=== PATIENT | female | born 1960 | race Caucasian/White ===

== ENCOUNTER 2018-03-23 18:42 | Inpatient (IN) | payer MEDICARE ==
[~2018-03-23] VITALS: Ht 160 cm; Wt 60.5 kg
[2018-03-23] MEDS ORDERED: ACETAMINOPHEN 650MG SUPP PR STA (18:53)
[2018-03-23] MEDS ORDERED: SODIUM CHLORIDE 0.9% 1000ML BAG (SEPSIS BOLUS) IV ONE (19:00)
[2018-03-23] MEDS ORDERED: VANCOMYCIN 1 G PREMIX 200 ML IV ONE (20:30)
[2018-03-23] MEDS ORDERED: PIPERACILLIN/TAZ 3.375G PREMIX 50 ML IV ONE (20:30)
[2018-03-23 20:39] LABS: BASOPHILS % 0.4 % (0.0-2.0); EOSINOPHILS % 0.1 % (0.0-5.0); HEMATOCRIT. 45.4 % (36.0-48.0); HEMOGLOBIN. 15.1 g/dL (12.0-16.0); LYMPHOCYTES % 22.6 % (20.0-50.0); MEAN CORPUSCULAR HEMOGLOBIN 24.2 pg (28.0-32.0); MEAN CORPUSCULAR VOLUME 72.9 fL (81.0-99.0); MEAN PLATELET VOLUME 8.3 fl (7.4-10.4); MONOCYTES % 8.4 % (2.0-8.0); NEUTROPHILS % 68.5 % (40.0-76.0); PLATELET 148 x1000/uL (130-400); RED BLOOD CELL COUNT 6.23 mill/uL (4.2-5.4); RED CELL DISTRIBUTION WIDTH 21.8 % (11.6-14.6)
[2018-03-23 20:42] LABS: CHLORIDE 135 mEq/L (98-107)
[2018-03-23 20:52] LABS: INR 1.5; PROTHROMBIN TIME 15.2 sec (9.4-11.6)
[2018-03-23 21:15] LABS: CLARITY URINE CLOUDY (CLEAR); COLOR URINE DARK YELLOW (YELLOW); KETONES URINE TRACE (NEGATIVE); LEUKOCYTE ESTERASE URINE 1+ (NEGATIVE); NITRITE URINE POSITIVE (NEGATIVE); OCCULT BLOOD URINE NEGATIVE (NEGATIVE); PROTEIN URINE TRACE (NEGATIVE); SPECIFIC GRAVITY URINE 1.031 (1.005-1.030)
[2018-03-24] VITALS (11 sets, daily range): BP systolic 106–155; BP diastolic 50–89
[2018-03-24] MEDS ORDERED: ACETAMINOPHEN 325MG TABLET PO PRN (03:15)
[2018-03-24] MEDS ORDERED: DEXTROSE 50% WATER 50ML SYRINGE IV PRN (03:15)
[2018-03-24] MEDS ORDERED: DEXT 5%/0.45% NACL 1000ML 1,000 ML IV SCH (03:15)
[2018-03-24] MEDS ORDERED: CYAN100T PO (04:16)
[2018-03-24] MEDS ORDERED: TIMO5DRO32 RIGHTEYE (04:16)
[2018-03-24] MEDS ORDERED: LATA2.5D2 RIGHTEYE (04:16)
[2018-03-24] MEDS ORDERED: DIAMOX PO (04:16)
[2018-03-24] MEDS ORDERED: DORZOLAMIDE HCL 2% OP (04:16)
[2018-03-24] MEDS ORDERED: SUMA25TA9 PO (04:16)
[2018-03-24] MEDS ORDERED: METF10004 PO (04:16)
[2018-03-24] MEDS ORDERED: NORCO PO (04:16)
[2018-03-24] MEDS ORDERED: GLIP10TA10 PO (04:16)
[2018-03-24] MEDS ORDERED: PROT40 PO (04:16)
[2018-03-24] MEDS ORDERED: POTASSIUM CHLORIDE PO (04:16)
[2018-03-24] MEDS ORDERED: INSU100I28 SQ (04:16)
[2018-03-24] MEDS ORDERED: PILOCARPINE HCL 2% OP (04:16)
[2018-03-24] MEDS ORDERED: PROPRANOLOL HCL PO (04:16)
[2018-03-24] MEDS ORDERED: LACT10SO30 PO (04:16)
[2018-03-24] MEDS: CEFTRIAXONE 1 G PREMIX 50 ML IV SCH (04:35)
[2018-03-24] MEDS ORDERED: DEXT 5%/0.45% NACL KCL 20MEQ/L 1,000 ML IV SCH (05:00)
[2018-03-24] MEDS ORDERED: INSULIN LISPRO 100 UNITS/ML SUBCUT SCH ×2 (06:00→07:20)
[2018-03-24] MEDS ORDERED: BLOOD SUGAR DIAGNOSTIC STRIP TEST SCH (06:00)
[2018-03-24] MEDS ORDERED: ONDANSETRON HCL 4MG TABLET PO PRN (06:00)
[2018-03-24] MEDS: AMLODIPINE 10MG TABLET PO SCH (08:11)
[2018-03-24] MEDS: PANTOPRAZOLE SODIUM 40 MG/VIAL IV SCH (08:15)
[2018-03-24] MEDS: TIMOLOL MALEATE 0.5% OPHTH DROPS 5ML RIGHTEYE SCH ×2 (08:16→17:09)
[2018-03-24] MEDS ORDERED: MEDICATION NOT ON FORMULARY EA (Timolol Maleate 1 DROP) RIGHTEYE SCH (09:00)
[2018-03-24 09:16] LABS: BASOPHILS % 0.6 % (0.0-2.0); EOSINOPHILS % 0.4 % (0.0-5.0); HEMATOCRIT. 38.8 % (36.0-48.0); HEMOGLOBIN. 12.8 g/dL (12.0-16.0); LYMPHOCYTES % 24.5 % (20.0-50.0); MEAN CORPUSCULAR HEMOGLOBIN 24.1 pg (28.0-32.0); MEAN CORPUSCULAR VOLUME 73.1 fL (81.0-99.0); MONOCYTES % 8.7 % (2.0-8.0); NEUTROPHILS % 65.8 % (40.0-76.0); RED CELL DISTRIBUTION WIDTH 21.6 % (11.6-14.6)
[2018-03-24 09:21] LABS: CHLORIDE 134 mEq/L (98-107)
[2018-03-24 09:24] LABS: AMMONIA 157 uMol/L (<32)
[2018-03-24] MEDS ORDERED: POTASSIUM CHLORIDE 20MEQ TABLET SR PO SCH (10:00)
[2018-03-24] MEDS: RIFAXIMIN 550 MG TABLET PO SCH ×2 (10:53→22:49)
[2018-03-24] MEDS ORDERED: POTASSIUM CHLORIDE INJ 40 MEQ in DEXT 5% WATER 250 ML IV SCH (11:00)
[2018-03-24] MEDS: BLOOD SUGAR DIAGNOSTIC STRIP TEST SCH ×3 (11:57→21:00)
[2018-03-24 12:20] LABS: MEAN PLATELET VOLUME 8.6 fl (7.4-10.4); PLATELET 65 x1000/uL (130-400)
[2018-03-24 12:31] LABS: HEPATITIS B SURFACE ANTIGEN NEGATIVE
[2018-03-24] MEDS: INSULIN GLARGINE UD 100 UNITS/ML SYR SUBCUT SCH ×2 (12:56→22:51)
[2018-03-24] MEDS: INSULIN LISPRO 100 UNITS/ML SUBCUT SCH ×4 (12:57→22:47)
[2018-03-24 12:59] LABS: HEPATITIS B CORE AB IGM NEGATIVE
[2018-03-24 13:00] LABS: HEPATITIS A AB IGM NEGATIVE (NEGATIVE)
[2018-03-24] MEDS: LACTULOSE 20G/30ML UDC PO SCH ×2 (13:00→22:50)
[2018-03-24 18:09] LABS: CHLORIDE 137 mEq/L (98-107)
[2018-03-24] MEDS: THIAMINE HCL 100MG TABLET PO SCH (19:04)
[2018-03-24] MEDS ORDERED: LEVEMIR 20 UNIT SUBCUT SCH (21:00)
[2018-03-24] MEDS ORDERED: INSULIN GLARGINE UD 100 UNITS/ML SYR SUBCUT SCH (22:00)
[2018-03-24] MEDS: NYSTATIN POWDER 15GM TOP SCH (22:50)
[2018-03-24] MEDS: LATANOPROST 0.005% OPHTH DROPS 2.5ML RIGHTEYE SCH (22:53)
[2018-03-25] VITALS (12 sets, daily range): BP systolic 104–156; BP diastolic 40–80
[2018-03-25 01:23] LABS: CHLORIDE 135 mEq/L (98-107)
[2018-03-25 06:38] LABS: BASOPHILS % 0.3 % (0.0-2.0); EOSINOPHILS % 2.6 % (0.0-5.0); HEMATOCRIT. 39.8 % (36.0-48.0); HEMOGLOBIN. 13.6 g/dL (12.0-16.0); LYMPHOCYTES % 20.4 % (20.0-50.0); MEAN CORPUSCULAR HEMOGLOBIN 25.1 pg (28.0-32.0); MEAN CORPUSCULAR VOLUME 73.7 fL (81.0-99.0); MEAN PLATELET VOLUME 8.7 fl (7.4-10.4); MONOCYTES % 7.7 % (2.0-8.0); PLATELET 51 x1000/uL (130-400); RED CELL DISTRIBUTION WIDTH 21.9 % (11.6-14.6)
[2018-03-25] MEDS: LACTULOSE 20G/30ML UDC PO SCH ×3 (06:44→21:16)
[2018-03-25] MEDS: CEFTRIAXONE 1 G PREMIX 50 ML IV SCH (06:44)
[2018-03-25] MEDS: INSULIN LISPRO 100 UNITS/ML SUBCUT SCH ×7 (06:50→21:00)
[2018-03-25] MEDS: BLOOD SUGAR DIAGNOSTIC STRIP TEST SCH ×4 (06:57→21:16)
[2018-03-25 07:14] LABS: CHLORIDE 133 mEq/L (98-107)
[2018-03-25] MEDS: NYSTATIN POWDER 15GM TOP SCH ×2 (08:00→21:17)
[2018-03-25] MEDS: RIFAXIMIN 550 MG TABLET PO SCH ×2 (08:00→21:16)
[2018-03-25] MEDS: AMLODIPINE 10MG TABLET PO SCH (08:00)
[2018-03-25] MEDS: PANTOPRAZOLE SODIUM 40 MG/VIAL IV SCH (08:00)
[2018-03-25] MEDS: THIAMINE HCL 100MG TABLET PO SCH (08:00)
[2018-03-25] MEDS: TIMOLOL MALEATE 0.5% OPHTH DROPS 5ML RIGHTEYE SCH ×2 (08:01→17:48)
[2018-03-25] MEDS ORDERED: IPRATROPIUM/ALBUTEROL 0.5-3(2.5)MG/3ML NEB HHN PRN (10:15)
[2018-03-25 10:32] LABS: BG BASE EXCESS -3.5 mmol/L (-2.0-2.0); BG CARBOXYHEMOGLOBIN 1.1 % (0.5-1.5); BG DEOXYHEMOGLOBIN 2.3 % (0.0-5.0); BG FRACTION INSPIRED OXYGEN 21; BG HCO3 ACT 18.5 mmol/L (22.0-26.0); BG METHEMOGLOBIN 0.3 % (0.0-1.5); BG OXYGEN SATURATION 97.7 % (92.0-98.5); BG OXYHEMOGLOBIN 96.3 % (94.0-97.0); BG PCO2 25.8 mmHg (35.0-45.0); BG PH 7.474 (7.350-7.450); BG PO2 100.1 mmHg (75.0-100.0); BG SAMPLE SITE LEFT RADIAL; BG TOTAL HEMOGLOBIN 13.2 g/dL (12.0-18.0); BG VENT MODE ROOM AIR
[2018-03-25] MEDS: DEXTROSE 5% WATER 1,000 ML IV SCH (11:29)
[2018-03-25] MEDS: INSULIN GLARGINE UD 100 UNITS/ML SYR SUBCUT SCH ×2 (11:29→21:58)
[2018-03-25] MEDS ORDERED: POTASSIUM CHLORIDE 20MEQ/PACKET PO SCH (14:00)
[2018-03-25] MEDS: LEVOFLOXACIN 750MG PREMIX 150 ML IV SCH (14:36)
[2018-03-25 16:25] LABS: AMMONIA 131 uMol/L (<32)
[2018-03-25 16:28] LABS: CHLORIDE 131 mEq/L (98-107)
[2018-03-25 17:10] LABS: PHOSPHORUS 2.6 mg/dL (2.5-4.9)
[2018-03-25] MEDS: LATANOPROST 0.005% OPHTH DROPS 2.5ML RIGHTEYE SCH (21:17)
[2018-03-26] VITALS (15 sets, daily range): BP systolic 119–151; BP diastolic 56–91
[2018-03-26] MEDS: DEXTROSE 5% WATER 1,000 ML IV SCH ×2 (00:38→14:48)
[2018-03-26 01:31] LABS: CHLORIDE 128 mEq/L (98-107)
[2018-03-26] MEDS: LACTULOSE 20G/30ML UDC PO SCH ×3 (06:00→22:19)
[2018-03-26 06:44] LABS: AMMONIA 76 uMol/L (<32)
[2018-03-26] MEDS: INSULIN LISPRO 100 UNITS/ML SUBCUT SCH ×7 (06:50→22:21)
[2018-03-26 06:59] LABS: CHLORIDE 123 mEq/L (98-107)
[2018-03-26] MEDS: BLOOD SUGAR DIAGNOSTIC STRIP TEST SCH ×4 (07:00→21:00)
[2018-03-26 07:25] LABS: BASOPHILS % 0.3 % (0.0-2.0); EOSINOPHILS % 4.2 % (0.0-5.0); HEMATOCRIT. 35.4 % (36.0-48.0); HEMOGLOBIN. 11.9 g/dL (12.0-16.0); MEAN CORPUSCULAR HEMOGLOBIN 24.3 pg (28.0-32.0); MEAN CORPUSCULAR VOLUME 72.1 fL (81.0-99.0); MEAN PLATELET VOLUME 8.6 fl (7.4-10.4); MONOCYTES % 6.8 % (2.0-8.0); NEUTROPHILS % 65.7 % (40.0-76.0); RED BLOOD CELL COUNT 4.91 mill/uL (4.2-5.4); RED CELL DISTRIBUTION WIDTH 21.8 % (11.6-14.6)
[2018-03-26 07:51] LABS: PLATELET 48 x1000/uL (130-400)
[2018-03-26] MEDS: TIMOLOL MALEATE 0.5% OPHTH DROPS 5ML RIGHTEYE SCH ×2 (08:24→18:09)
[2018-03-26] MEDS: THIAMINE HCL 100MG TABLET PO SCH (08:24)
[2018-03-26] MEDS: RIFAXIMIN 550 MG TABLET PO SCH ×2 (08:24→22:20)
[2018-03-26] MEDS: PANTOPRAZOLE SODIUM 40 MG/VIAL IV SCH (08:25)
[2018-03-26] MEDS: AMLODIPINE 10MG TABLET PO SCH (08:26)
[2018-03-26] MEDS: NYSTATIN POWDER 15GM TOP SCH ×2 (08:28→22:20)
[2018-03-26] MEDS ORDERED: POTASSIUM CHLORIDE INJ 60 MEQ in DEXT 5% WATER 500 ML IV NR (09:30)
[2018-03-26 10:48] LABS: PHOSPHORUS 2.6 mg/dL (2.5-4.9)
[2018-03-26] MEDS: LEVOFLOXACIN 750MG PREMIX 150 ML IV SCH (11:28)
[2018-03-26] MEDS ORDERED: LORAZEPAM 1MG TABLET PO SCH (14:45)
[2018-03-26] MEDS ORDERED: LORAZEPAM 2MG/ML CPJ IV SCH (15:00)
[2018-03-26] MEDS ORDERED: HYDRALAZINE 20MG/ML VIAL IV PRN (16:00)
[2018-03-26 16:04] LABS: PLATELET ESTIMATE MARKEDLY DECREASED
[2018-03-26] MEDS: LATANOPROST 0.005% OPHTH DROPS 2.5ML RIGHTEYE SCH (22:20)
[2018-03-26] MEDS: LEVETIRACETAM 500MG/5ML CUP PO SCH (22:20)
[2018-03-26] MEDS: INSULIN GLARGINE UD 100 UNITS/ML SYR SUBCUT SCH (22:22)
[2018-03-27] VITALS (12 sets, daily range): BP systolic 105–154; BP diastolic 58–85
[2018-03-27] MEDS: DEXTROSE 5% WATER 1,000 ML IV SCH (02:14)
[2018-03-27] MEDS: LACTULOSE 20G/30ML UDC PO SCH ×3 (05:51→22:07)
[2018-03-27] MEDS: INSULIN LISPRO 100 UNITS/ML SUBCUT SCH ×7 (05:53→23:46)
[2018-03-27] MEDS: BLOOD SUGAR DIAGNOSTIC STRIP TEST SCH ×4 (05:54→23:42)
[2018-03-27 07:59] LABS: BASOPHILS % 0.4 % (0.0-2.0); HEMATOCRIT. 35.6 % (36.0-48.0); HEMOGLOBIN. 12.1 g/dL (12.0-16.0); LYMPHOCYTES % 25.2 % (20.0-50.0); MEAN CORPUSCULAR HEMOGLOBIN 24.6 pg (28.0-32.0); MEAN CORPUSCULAR VOLUME 72.6 fL (81.0-99.0); MEAN PLATELET VOLUME 8.4 fl (7.4-10.4); MONOCYTES % 6.5 % (2.0-8.0); NEUTROPHILS % 62.9 % (40.0-76.0); RED BLOOD CELL COUNT 4.91 mill/uL (4.2-5.4); RED CELL DISTRIBUTION WIDTH 21.4 % (11.6-14.6)
[2018-03-27 08:06] LABS: AMMONIA 81 uMol/L (<32)
[2018-03-27 08:10] LABS: PLATELET 50 x1000/uL (130-400)
[2018-03-27 08:12] LABS: CHLORIDE 111 mEq/L (98-107)
[2018-03-27 08:25] LABS: PHOSPHORUS 2.9 mg/dL (2.5-4.9)
[2018-03-27] MEDS: PANTOPRAZOLE SODIUM 40 MG/VIAL IV SCH (09:08)
[2018-03-27] MEDS: LEVETIRACETAM 500MG/5ML CUP PO SCH ×2 (09:09→22:08)
[2018-03-27] MEDS: THIAMINE HCL 100MG TABLET PO SCH (09:09)
[2018-03-27] MEDS: TIMOLOL MALEATE 0.5% OPHTH DROPS 5ML RIGHTEYE SCH ×2 (09:10→17:04)
[2018-03-27] MEDS: NYSTATIN POWDER 15GM TOP SCH ×2 (09:11→22:08)
[2018-03-27] MEDS: AMLODIPINE 10MG TABLET PO SCH (09:11)
[2018-03-27] MEDS: RIFAXIMIN 550 MG TABLET PO SCH ×2 (09:11→22:08)
[2018-03-27] MEDS: INSULIN GLARGINE UD 100 UNITS/ML SYR SUBCUT SCH ×2 (10:54→23:47)
[2018-03-27] MEDS: LEVOFLOXACIN 750MG PREMIX 150 ML IV SCH (10:56)
[2018-03-27] MEDS: LORAZEPAM 2MG/ML CPJ IV PRN (11:34)
[2018-03-27] MEDS ORDERED: POTASSIUM CHLORIDE 20MEQ/PACKET PO NR (14:15)
[2018-03-27] MEDS: LATANOPROST 0.005% OPHTH DROPS 2.5ML RIGHTEYE SCH (22:08)
[2018-03-28] VITALS (12 sets, daily range): BP systolic 101–131; BP diastolic 58–77
[2018-03-28] MEDS: BLOOD SUGAR DIAGNOSTIC STRIP TEST SCH ×3 (05:58→17:53)
[2018-03-28] MEDS: INSULIN LISPRO 100 UNITS/ML SUBCUT SCH ×6 (06:05→17:53)
[2018-03-28 06:30] LABS: BASOPHILS % 0.3 % (0.0-2.0); EOSINOPHILS % 4.5 % (0.0-5.0); HEMATOCRIT. 36.3 % (36.0-48.0); HEMOGLOBIN. 12.4 g/dL (12.0-16.0); LYMPHOCYTES % 21.1 % (20.0-50.0); MEAN CORPUSCULAR VOLUME 73.2 fL (81.0-99.0); MEAN PLATELET VOLUME 8.5 fl (7.4-10.4); MONOCYTES % 6.4 % (2.0-8.0); NEUTROPHILS % 67.7 % (40.0-76.0); PLATELET 57 x1000/uL (130-400); RED BLOOD CELL COUNT 4.96 mill/uL (4.2-5.4)
[2018-03-28] MEDS: LACTULOSE 20G/30ML UDC PO SCH ×3 (06:33→21:43)
[2018-03-28 07:37] LABS: AMMONIA 69 uMol/L (<32)
[2018-03-28 07:48] LABS: CHLORIDE 109 mEq/L (98-107)
[2018-03-28] MEDS: RIFAXIMIN 550 MG TABLET PO SCH ×2 (09:42→21:43)
[2018-03-28] MEDS: PANTOPRAZOLE SODIUM 40 MG/VIAL IV SCH (09:42)
[2018-03-28] MEDS: LEVETIRACETAM 500MG/5ML CUP PO SCH ×2 (09:42→21:43)
[2018-03-28] MEDS: THIAMINE HCL 100MG TABLET PO SCH (09:43)
[2018-03-28] MEDS: AMLODIPINE 10MG TABLET PO SCH (09:43)
[2018-03-28] MEDS: TIMOLOL MALEATE 0.5% OPHTH DROPS 5ML RIGHTEYE SCH ×2 (09:43→17:52)
[2018-03-28] MEDS: INSULIN GLARGINE UD 100 UNITS/ML SYR SUBCUT SCH ×2 (09:44→22:23)
[2018-03-28] MEDS: NYSTATIN POWDER 15GM TOP SCH ×2 (09:44→21:44)
[2018-03-28] MEDS: LORAZEPAM 2MG/ML CPJ IV PRN (09:59)
[2018-03-28] MEDS: LEVOFLOXACIN 750MG PREMIX 150 ML IV SCH (10:18)
[2018-03-28] MEDS: GENTAMICIN 0.3% OPHTH DROPS 5ML RIGHTEYE SCH ×4 (10:54→22:22)
[2018-03-28] MEDS: LATANOPROST 0.005% OPHTH DROPS 2.5ML RIGHTEYE SCH (21:43)
[2018-03-28] MEDS ORDERED: INSULIN LISPRO 100 UNITS/ML SUBCUT SCH (22:15)
[2018-03-29] VITALS (12 sets, daily range): BP systolic 103–159; BP diastolic 58–72
[2018-03-29] MEDS: BLOOD SUGAR DIAGNOSTIC STRIP TEST SCH ×4 (00:25→17:48)
[2018-03-29] MEDS: INSULIN LISPRO 100 UNITS/ML SUBCUT SCH ×7 (00:25→17:56)
[2018-03-29] MEDS: GENTAMICIN 0.3% OPHTH DROPS 5ML RIGHTEYE SCH ×6 (02:55→21:40)
[2018-03-29] MEDS: LACTULOSE 20G/30ML UDC PO SCH ×3 (06:00→21:31)
[2018-03-29 06:24] LABS: CHLORIDE 106 mEq/L (98-107); HEMATOCRIT 35.9 % (36.0-48.0); HEMOGLOBIN 12.3 g/dL (12.0-16.0); MEAN CORPUSCULAR HEMOGLOBIN 24.7 pg (28.0-32.0); MEAN CORPUSCULAR VOLUME 71.8 fL (81.0-99.0); PLATELET 61 x1000/uL (130-400); RED BLOOD CELL COUNT 4.99 mill/uL (4.2-5.4); RED CELL DISTRIBUTION WIDTH 21.1 % (11.6-14.6)
[2018-03-29] MEDS: PANTOPRAZOLE 40MG DR TABLET PO SCH (06:35)
[2018-03-29] MEDS: NYSTATIN POWDER 15GM TOP SCH ×2 (09:21→21:32)
[2018-03-29] MEDS: LEVETIRACETAM 500MG/5ML CUP PO SCH ×2 (09:21→21:31)
[2018-03-29] MEDS: RIFAXIMIN 550 MG TABLET PO SCH ×2 (09:21→21:30)
[2018-03-29] MEDS: TIMOLOL MALEATE 0.5% OPHTH DROPS 5ML RIGHTEYE SCH ×2 (09:21→17:29)
[2018-03-29] MEDS: THIAMINE HCL 100MG TABLET PO SCH (09:21)
[2018-03-29] MEDS: AMLODIPINE 10MG TABLET PO SCH (09:21)
[2018-03-29] MEDS: INSULIN GLARGINE UD 100 UNITS/ML SYR SUBCUT SCH ×2 (10:10→21:40)
[2018-03-29] MEDS: LORAZEPAM 2MG/ML CPJ IV PRN ×2 (10:29→20:00)
[2018-03-29] MEDS: LEVOFLOXACIN 250MG TABLET PO SCH (11:47)
[2018-03-29] MEDS: LATANOPROST 0.005% OPHTH DROPS 2.5ML RIGHTEYE SCH (21:32)
[2018-03-30] VITALS (12 sets, daily range): BP systolic 100–141; BP diastolic 61–84
[2018-03-30] MEDS: INSULIN LISPRO 100 UNITS/ML SUBCUT SCH ×8 (00:14→23:50)
[2018-03-30] MEDS: GENTAMICIN 0.3% OPHTH DROPS 5ML RIGHTEYE SCH ×6 (02:10→21:39)
[2018-03-30 05:51] LABS: CHLORIDE 101 mEq/L (98-107)
[2018-03-30] MEDS: BLOOD SUGAR DIAGNOSTIC STRIP TEST SCH ×5 (06:00→23:51)
[2018-03-30 06:07] LABS: BASOPHILS % 0.4 % (0.0-2.0); EOSINOPHILS % 3.4 % (0.0-5.0); HEMATOCRIT. 37.2 % (36.0-48.0); HEMOGLOBIN. 12.7 g/dL (12.0-16.0); LYMPHOCYTES % 22.4 % (20.0-50.0); MEAN CORPUSCULAR HEMOGLOBIN 24.7 pg (28.0-32.0); MEAN CORPUSCULAR VOLUME 72.3 fL (81.0-99.0); MEAN PLATELET VOLUME 8.5 fl (7.4-10.4); MONOCYTES % 7.5 % (2.0-8.0); NEUTROPHILS % 66.3 % (40.0-76.0); PLATELET 64 x1000/uL (130-400); RED BLOOD CELL COUNT 5.15 mill/uL (4.2-5.4); RED CELL DISTRIBUTION WIDTH 21.6 % (11.6-14.6)
[2018-03-30] MEDS: LACTULOSE 20G/30ML UDC PO SCH ×3 (06:36→21:37)
[2018-03-30] MEDS: PANTOPRAZOLE 40MG DR TABLET PO SCH (06:36)
[2018-03-30] MEDS: THIAMINE HCL 100MG TABLET PO SCH (09:16)
[2018-03-30] MEDS: LEVETIRACETAM 500MG/5ML CUP PO SCH ×2 (09:16→21:38)
[2018-03-30] MEDS: AMLODIPINE 10MG TABLET PO SCH (09:16)
[2018-03-30] MEDS: TIMOLOL MALEATE 0.5% OPHTH DROPS 5ML RIGHTEYE SCH ×2 (09:17→17:29)
[2018-03-30] MEDS: RIFAXIMIN 550 MG TABLET PO SCH ×2 (09:17→21:38)
[2018-03-30] MEDS: INSULIN GLARGINE UD 100 UNITS/ML SYR SUBCUT SCH ×2 (09:17→21:40)
[2018-03-30] MEDS: NYSTATIN POWDER 15GM TOP SCH ×2 (09:18→21:39)
[2018-03-30] MEDS: LEVOFLOXACIN 250MG TABLET PO SCH (11:09)
[2018-03-30] MEDS: LORAZEPAM 2MG/ML CPJ IV PRN ×2 (15:56→22:17)
[2018-03-30] MEDS: LATANOPROST 0.005% OPHTH DROPS 2.5ML RIGHTEYE SCH (21:39)
[2018-03-31] VITALS (13 sets, daily range): BP systolic 91–121; BP diastolic 56–69
[2018-03-31] MEDS: GENTAMICIN 0.3% OPHTH DROPS 5ML RIGHTEYE SCH ×6 (01:53→21:04)
[2018-03-31] MEDS: LACTULOSE 20G/30ML UDC PO SCH ×2 (06:00→14:30)
[2018-03-31 06:12] LABS: CHLORIDE 102 mEq/L (98-107)
[2018-03-31] MEDS: PANTOPRAZOLE 40MG DR TABLET PO SCH (06:16)
[2018-03-31] MEDS: INSULIN LISPRO 100 UNITS/ML SUBCUT SCH ×6 (06:17→17:05)
[2018-03-31] MEDS: BLOOD SUGAR DIAGNOSTIC STRIP TEST SCH ×3 (06:18→16:58)
[2018-03-31] MEDS ORDERED: MAGNESIUM SULFATE 2 GM in DEXTROSE 5% WATER 50 ML IV NR (09:00)
[2018-03-31] MEDS: AMLODIPINE 10MG TABLET PO SCH (09:00)
[2018-03-31] MEDS: LEVETIRACETAM 500MG/5ML CUP PO SCH ×2 (09:09→21:03)
[2018-03-31] MEDS: TIMOLOL MALEATE 0.5% OPHTH DROPS 5ML RIGHTEYE SCH ×2 (09:09→17:03)
[2018-03-31] MEDS: RIFAXIMIN 550 MG TABLET PO SCH (09:10)
[2018-03-31] MEDS: THIAMINE HCL 100MG TABLET PO SCH (09:10)
[2018-03-31] MEDS: NYSTATIN POWDER 15GM TOP SCH ×2 (09:11→21:04)
[2018-03-31 09:53] LABS: BASOPHILS % 0.5 % (0.0-2.0); EOSINOPHILS % 3.4 % (0.0-5.0); HEMATOCRIT. 33.6 % (36.0-48.0); HEMOGLOBIN. 11.4 g/dL (12.0-16.0); LYMPHOCYTES % 23.9 % (20.0-50.0); MEAN CORPUSCULAR HEMOGLOBIN 24.7 pg (28.0-32.0); MEAN CORPUSCULAR VOLUME 72.4 fL (81.0-99.0); MEAN PLATELET VOLUME 8.4 fl (7.4-10.4); MONOCYTES % 10.2 % (2.0-8.0); PLATELET 64 x1000/uL (130-400); RED BLOOD CELL COUNT 4.64 mill/uL (4.2-5.4); RED CELL DISTRIBUTION WIDTH 22.1 % (11.6-14.6)
[2018-03-31] MEDS: LEVOFLOXACIN 250MG TABLET PO SCH (09:59)
[2018-03-31] MEDS: INSULIN GLARGINE UD 100 UNITS/ML SYR SUBCUT SCH (10:00)
[2018-03-31 12:48] LABS: AMMONIA 107 uMol/L (<32)
[2018-03-31] MEDS: LATANOPROST 0.005% OPHTH DROPS 2.5ML RIGHTEYE SCH (21:04)
== END 2018-03-31 22:50 | DRG 871 ==
LOC: ER 18:42 → 3WST 21:24 → EDBEDREQ 21:29 → EDBEDREQTM 21:29 → ENRESERV 22:09 → 3WST 03-28 15:20
PROVIDERS: ADMIT Internal Medicine; ATTEND Internal Medicine
PROC: 02HV33Z Insertion of Infusion Device into Superior Vena Cava, Percutaneous Approach (ICD-10-PCS; principal; 2018-03-29)
PROC: B548ZZA Ultrasonography of Superior Vena Cava, Guidance (ICD-10-PCS; 2018-03-29)
DX: A41.51 Sepsis due to Escherichia coli [E. coli] (principal); G92 Toxic encephalopathy; I61.9 Nontraumatic intracerebral hemorrhage, unspecified; N39.0 Urinary tract infection, site not specified; E87.0 Hyperosmolality and hypernatremia; E44.0 Moderate protein-calorie malnutrition; D68.4 Acquired coagulation factor deficiency; E87.2 Acidosis; N17.9 Acute kidney failure, unspecified; E72.20 Disorder of urea cycle metabolism, unspecified; K74.60 Unspecified cirrhosis of liver; E87.6 Hypokalemia; K21.9 Gastro-esophageal reflux disease without esophagitis; I10 Essential (primary) hypertension; B19.20 Unspecified viral hepatitis C without hepatic coma; L89.150 Pressure ulcer of sacral region, unstageable; E11.65 Type 2 diabetes mellitus with hyperglycemia; D69.6 Thrombocytopenia, unspecified; R13.10 Dysphagia, unspecified; E11.649 Type 2 diabetes mellitus with hypoglycemia without coma; E86.9 Volume depletion, unspecified; E87.8 Other disorders of electrolyte and fluid balance, not elsewhere classified; H40.9 Unspecified glaucoma; Z16.12 Extended spectrum beta lactamase (ESBL) resistance; Z79.84 Long term (current) use of oral hypoglycemic drugs; Z79.899 Other long term (current) drug therapy
CPT/HCPCS: 36415; 36569; 36600; 70450; 70551; 71045; 76937; 80048; 80053; 81003; 82140; 82375; 82805; 82962; 83036; 83605; 83735; 84100; 84132; 84134; 85025; 85027; 85610; 86705; 86709; 86803; 87040; 87077; 87086; 87186; 87340; 92610; 93005; 93970; 95816; 96361; 96365; 96366; 96368; 97162; 97530; 99291; A6261; C1725; C9113; J0696; J1815; J1956; J2060; J2543; J3370; J3475; J3480; J7030; J7050; J7060; J7070